=== PATIENT | female | born 1950 | race Caucasian/White ===

== ENCOUNTER 2017-08-09 14:02 | Inpatient (IN) | payer OTHER ==
--- NOTE | 2017-08-09 14:18 | EDPHY ---
General Time Seen by Provider: 08/09/17 14:07 Narrative: CHIEF COMPLAINT: M1 hold HISTORY OF PRESENT ILLNESS: Patient presents on M1 hold due to grave disability and reported suicidal ideation. The patient says she is bipolar and has not been taking her medications since June. She says she has tried to help her symptoms by swimming , thinking positively, eating better foods and this is not helping her. She says she stop taking medications because "I could not afford them and I did want to take." She denies suicidal ideation to me, but the M1 documents that she was reportedly suicidal at the crisis Center. She took sells to the crisis Center because she was not feeling well and felt that she needed help. No other associated complaints or modifying factors. PSYCHIATRIC DIAGNOSES: Bipolar disorder, PTSD, anxiety PRIOR PSYCHIATRIC EVALUATIONS: Multiple inpatient evaluations M1/DETAINER: Crisis Center just prior to arrival REVIEW OF SYSTEMS: Ten systems reviewed and are negative unless otherwise noted in the HPI EXAMINATION General Appearance: Alert, no distress. Well-developed well-nourished. Head: normocephalic, atraumatic Eyes: Pupils equal and round, no conjunctival pallor or injection ENT, Mouth: Mucous membranes moist Neck: Normal inspection, supple, non-tender Respiratory: Lungs are clear to auscultation Cardiovascular: Regular rate and rhythm. No murmur Gastrointestinal: Abdomen is soft and nontender Back: non-tender, no bony abnormalities Neurological: A&O, nonfocal, normal gait Skin: Warm and dry, no rash no petechiae or purpura Extremities: Nontender, no pedal edema Psychiatric: Depressed mood and emotionally labile with flight of ideas and manic behaviors. Denies SI DIFFERENTIAL DIAGNOSES: Including but not limited to manic episode, bipolar disorder, PTSD, anxiety, suicidal ideation, hypomania MDM: 1:50 p.m. M1 due to grave disability and suicidal ideation bipolar patient. She does appear to be manic and admits to not taking her medication. She denies SI to me. She is on an M1 hold from the crisis Center and we will proceed with clearance and evaluation 2:40 p.m. Patient medically cleared at this time for evaluation. 3:40 p.m. Patient currently be evaluated. 4:40 p.m. Patient has been evaluated and is waiting for placement as recommended by EPS. 5:[address] At this time Dr. Shen will assume care the patient. She is pending placement as recommended by EPS. She has been very calm and not requiring medication to this time. Please see his note for final disposition. SUPERVISION: Patient was independently examined, but I discussed the case with my secondary supervising physician Dr. Shen ([facility]) Medical Decision Making: PHYSICIAN DOCUMENTATION: The patient was evaluated and managed by the Physician Belt Tender and myself. I have reviewed the chart and agree with the findings and plan of care as documented. In addition, I examined the patient myself at 1700. History confirmed as multiple recent emotional trauma as including estrangement from her daughter, a separation from her mother, recent break-up with a boyfriend in May, difficulty finding a job, homeless and living in her car. Physical findings as follows: Patient feels like her thoughts are racing, she is tearful and anxious. On a mental health hold, plan for placement for admission for severe depression , suicidal ideation. Signed out to [facility] with inpatient placement pending. I am the secondary supervising physician. (Binh Shen) 11:37pm The patient has been accepted to [address] [place] [address] Mccloud. I have completed the EMTALA form. The patient will be transferred at 12:30 a.m. We anticipate. (Tosin Robertson) - Objective Vital Signs: Initial Vital Signs Temperature (C) 36.8 C 08/09/17 14:02 Heart Rate 79 08/09/17 14:02 Respiratory Rate 16 08/09/17 14:02 Blood Pressure 136/94 H 08/09/17 14:02 O2 Sat (%) 96 08/09/17 14:02 O2 Delivery Mode Room Air Allergies/Adverse Reactions: No Known Allergies Allergy (Verified 08/09/17 14:25) Home Medications: Medication Instructions Recorded NK [No Known Home Meds] 08/09/17 Laboratory Results: Laboratory Results 08/09/17 14:12 08/09/17 14:12 08/09/17 08/09/17 08/09/17 14:28 14:12 14:12 WBC 4.52 10^3/uL 10^3/uL (3.80-9.50) RBC 4.88 10^6/uL 10^6/uL (4.18-5.33) Hgb 14.7 g/dL g/dL (12.6-16.3) Hct 43.5 % % (38.0-47.0) MCV 89.1 fL fL (81.5-99.8) MCH 30.1 pg pg (27.9-34.1) MCHC 33.8 g/dL g/dL (32.4-36.7) RDW 13.5 % % (11.5-15.2) Plt Count 212 10^3/uL 10^3/uL (150-400) MPV 10.4 fL fL (8.7-11.7) Neut % (Auto) 59.4 % % (39.3-74.2) Lymph % (Auto) 34.5 % % (15.0-45.0) Custer % (Auto) 4.6 % % (4.5-13.0) Eos % (Auto) 0.7 % % (0.6-7.6) Baso % (Auto) 0.4 % % (0.3-1.7) Nucleat RBC Rel Count 0.0 % % (0.0-0.2) Absolute Neuts (auto) 2.68 10^3/uL 10^3/uL (1.70-6.50) Absolute Lymphs (auto) 1.56 10^3/uL 10^3/uL (1.00-3.00) Absolute Monos (auto) 0.21 10^3/uL L 10^3/uL (0.30-0.80) Absolute Eos (auto) 0.03 10^3/uL 10^3/uL (0.03-0.40) Absolute Basos (auto) 0.02 10^3/uL 10^3/uL (0.02-0.10) Absolute Nucleated RBC 0.00 10^3/uL 10^3/uL (0-0.01) Immature Gran % 0.4 % % (0.0-1.1) Immature Gran # 0.02 10^3/uL 10^3/uL (0.00-0.10) Sodium 137 mEq/L mEq/L (135-145) Potassium 3.7 mEq/L mEq/L (3.3-5.0) Chloride 106 mEq/L mEq/L (97-110) Carbon Dioxide 25 mEq/l mEq/l (22-31) Anion Gap 6 mEq/L L mEq/L (8-16) BUN 9 mg/dL mg/dL (7-23) Creatinine 0.9 mg/dL mg/dL (0.6-1.0) Estimated GFR > 60 Glucose 189 mg/dL H mg/dL (70-100) Calcium 9.2 mg/dL mg/dL (8.5-10.4) Salicylates < 1.0 mg/dL L mg/dL (2.0-20.0) Urine Opiates Screen NEGATIVE (NEGATIVE) Acetaminophen < 10 mcg/mL L mcg/mL (10-30) Urine Barbiturates NEGATIVE (NEGATIVE) Ur Phencyclidine Scrn NEGATIVE (NEGATIVE) Ur Amphetamine Screen NEGATIVE (NEGATIVE) U Benzodiazepines Scrn NEGATIVE (NEGATIVE) Urine Cocaine Screen NEGATIVE (NEGATIVE) U Marijuana (THC) Screen NEGATIVE (NEGATIVE) Ethyl Alcohol < 10 mg/dL mg/dL (0-10) Medications Given: Discontinued Medications Lorazepam (Ativan) 1 mg PO EDNOW ONE Stop: 08/09/17 17:18 Last Admin: 08/09/17 17:33 Dose: 1 mg Departure - Departure Disposition: [facility] IP Clinical Impression: Suicidal ideation Bipolar disorder Qualifiers: Active/Remission status: currently active Current bipolar episode type: manic Current episode severity: unspecified Qualified Code(s): F31.9 - Bipolar disorder, unspecified Condition: Fair Referrals: [facility],. [Clinic] - As per Instructions Vinicius Mcneil MD [Medical Doctor] - As per Instructions
[2017-08-09 14:33] LABS: PLATELET COUNT 212 10^3/uL (150-400)
[2017-08-09] MEDS ORDERED: LORazepam 1 MG TAB PO ONE (17:17)
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
--- NOTE | 2017-08-09 23:24 | ASMTTCLDSP ---
TLC Discharge Disposition Disposition: Answers: Admit Disposition Notes: Notes: Per consultation with ed nataliia Shen MD and On-call psychiatrist Dr.Susie Mccloud the pt does continue to meet 27-65 criteria and continues to be grave disabled due to a mental illness disorder. For inpatient Dr. Danay Mccloud admission, the following psychiatrist agreed to accept patient for admission to [facility] Type of Hold: Answers: M1/72-hour Hold Hold initiated by: Answers: Other Notes: [facility] patient access registrar at [facility] Date Signed: 08/09/2017 11:24 PM Electronically Signed By:Luc Brandon
[2017-08-10] MEDS ORDERED: MAG HYDROX/AL HYDROX/SIMETH 30 ML UDCUP PO PRN (01:42)
[2017-08-10] MEDS ORDERED: NICOTINE POLACRILEX 2 MG GUM B PRN (01:42)
[2017-08-10] MEDS ORDERED: MAGNESIUM HYDROXIDE 30 ML UDCUP PO PRN (01:42)
[2017-08-10] MEDS ORDERED: OLANZapine 5 MG TAB PO PRN (01:43)
[2017-08-10] MEDS: LORazepam 0.5 MG TAB PO PRN ×2 (02:17→19:16)
[2017-08-10] MEDS: ACETAMINOPHEN 325 MG TAB PO PRN (02:18)
--- NOTE | 2017-08-10 11:10 | GCON ---
[f rep st] CONSULTATION DATE OF CONSULTATION: 08/10/2017 HISTORY OF PRESENT ILLNESS: The patient is a pleasant 67-year-old female history of bipolar. She [place] s been off medications for a number of on weeks to months, secondary to poor access to medications. She presents to the ER feeling gravely disabled. She describes episodes of tera recently with poor sleep and drinking alcohol to try to quiet her feelings. With that said, she has not been bingeing o n alcohol. She denies exertional chest pain, dyspnea on exertion, lower extremity edema, cough, shortness of janine ath, fever, chills, unexplained weight loss, constipation. She said she had some diarrhea after drin lillian alcohol. REVIEW OF SYSTEMS: Complete 10-point review of systems conducted negative, except as noted in the HP I. PAST MEDICAL HISTORY: Bipolar. ALLERGIES: No known drug allergies. HOME MEDICATIONS: None. SOCIAL HISTORY: Occasional alcohol. No tobacco. Currently homeless, lives in [place]. FAMILY HISTORY: Reviewed and unremarkable. PHYSICAL EXAMINATION: VITAL SIGNS: Temp 36.8, blood pressure 136/94, pulse 79, breathing 16 times a minute, 96% on room air. GENERAL: In no acute distress. HEENT: Sclerae anicteric. Oropharynx cl ear. Mucous membranes moist. NECK: Supple without lymphadenopathy or JVD. LUNGS: Clear to auscul tation bilaterally. HEART: S1, S2. ABDOMEN: Soft, nontender, nondistended. LOWER EXTREMITIES: W ithout edema. Calves are nontender. SKIN: Without rash. NEUROLOGIC: Exam is nonfocal. LABORATORY/IMAGING: Sodium 137, potassium 3.7, chloride 106, bicarb 25, BUN 9, creatinine 0.9, gluco se 189. Hemoglobin A1c is pending. Tox screen is negative. White count 4.5, hematocrit 43, platele ts are 212,000. There is no imaging. I have discussed case with Dr. Danay Mccloud. ASSESSMENT/PLAN: 67-year-old female presents with untreated bipolar illness and possible tera. 1. Bipolar/tera. She has been started on Zyprexa. Further management as per Psychiatry. 2. Hyperglycemia. This is a 67-year-old female who is at risk for type 2 diabetes. I agre e with following up her hemoglobin A1c. If higher than 7, would recommend metformin 500 twice daily. 3. Prophylaxis. The patient should presumably be ambulatory. If she is sleeping for long periods o f time, she warrants venous thromboembolism prophylaxis. 4. Hypertension. The patient had mild to moderate hypertension on presentation, but she relates to me a lifelong history of normal blood pressures. Would not treat at this point in time. If she is p ersistently hypertensive, say above 150/80, would reach out to Hospital Medicine and/or Oneil hanna for recommendations on antihypertensives starting with an RHYS inhibitor. /[id number]/MODL
[2017-08-10] MEDS ORDERED: GABAPENTIN 100 MG CAP PO PRN (19:15)
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
--- NOTE | 2017-08-11 12:55 | ASMTCMCOM ---
CM Note CM Note Notes: Pt. refused to sign [employer] form Date Signed: 08/11/2017 12:54 PM Electronically Signed By:Taryn Valentin
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
[2017-08-11] MEDS: GABAPENTIN 100 MG CAP PO SCH (22:01)
[2017-08-11] MEDS: LORazepam 0.5 MG TAB PO PRN (22:05)
[2017-08-12] MEDS: GABAPENTIN 100 MG CAP PO SCH ×3 (09:31→21:19)
[2017-08-12] MEDS: ARIPiprazole 5 MG TAB PO SCH (09:31)
--- NOTE | 2017-08-12 15:20 | SOAPPROG ---
SOAP Progress Note Assessment/Plan: Assessment: 67 yo woman presented to ED d/t depression and SI w/o plan. Plan: 08/12/17 15:13 1. Restarted Abilify 5mg PO QAM, which patient is tolerating w/o SE's. 2. Patient also consented to Gabapentin 100mg TID for anxiety. 3. Patient isolating in room all day, despite encouragement to attend groups and participate in milieu activities. 4. Willing to sign in voluntarily. 5. Patient wants assistance to enroll for Medicare so she can access services when she leaves. Subjective: Met with patient, reviewed chart and d/w staff. Patient states she is still feeling helpless, hopeless. She wants to know "how I can crawl out of this deep hole." She blames herself for making "bad decisions" and "always doing the wrong thing." Patient says she "can't afford" to pay for Medicare insurance or for medications. MD reassured her that CC would talk to her about her financial options. MD tried to impress on patient that she might be better off using some of her She denies any SI/HI. Objective: Vital Signs Temp Pulse Resp BP Pulse Ox 36.3 C 81 16 143/70 H 94 08/12/17 06:48 08/12/17 13:00 08/12/17 13:00 08/12/17 13:00 08/12/17 13:00 MSE: Affect: Crying Mood: Hopeless TC: Linear, goal-directed TC: Denies SI /HI,no AH/VH Insight/Judgment: Poor - Time Spent With Patient Time Spent With Patient: 15" - Pending Discharge Pending Discharge Within 24 Hours: No Pending Discharge Within 48 Hours: No ICD10 Worksheet Patient Problems: Problems Problem Status Onset Bipolar disorder Acute Suicidal ideation Acute
[2017-08-12] MEDS: LORazepam 0.5 MG TAB PO PRN (21:19)
[2017-08-13] MEDS: ARIPiprazole 5 MG TAB PO SCH (08:16)
[2017-08-13] MEDS: GABAPENTIN 100 MG CAP PO SCH (08:16)
[2017-08-13] MEDS: ACETAMINOPHEN 325 MG TAB PO PRN (14:45)
[2017-08-13] MEDS: GABAPENTIN 300 MG CAP PO SCH ×2 (16:21→21:07)
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
[2017-08-13] MEDS: MIRTAZAPINE 15 MG TAB PO SCH (21:07)
[2017-08-13] MEDS: LORazepam 0.5 MG TAB PO PRN (21:10)
[2017-08-14] MEDS: ARIPiprazole 5 MG TAB PO SCH (08:51)
[2017-08-14] MEDS: GABAPENTIN 300 MG CAP PO SCH ×3 (08:51→20:24)
--- NOTE | 2017-08-14 14:14 | SOAPPROG ---
SOAP Progress Note Assessment/Plan: Assessment: Plan: 08/13/17 18:58 Depression: Dx'd with Bipolar D/o. Some historical evidence of this. Main c/ o at this time is pervasive anxiety. She believes the Abilify is helpful to her. Dr. Mccloud mentioned Latuda, but I believe it is more prudent to continue Abilify. She is agreeable to increasing gabapentin to 300mg TID to address anxiety and to start mirtazapine for sleep and mood. The risks, benefits and alternatives of all three medications are reviewed with her. I emphasized risk of tera with mirtazapine and standard risks of Abilify. 08/14/17 14:14 Depression: Improving. Sleep better with mirtazapine. CCM. Continue d/c planning. Subjective: Pt seen, discussed with staff. Seen in treatment planning meeting to identify specific goals for d/c. Goes back into feelings of despair and "uselessness." Verbose, but able to identify housing, meds, and follow-up as primary goals. Objective: Vital Signs Temp Pulse Resp BP Pulse Ox 36.3 C 84 14 117/80 95 08/14/17 10:21 08/14/17 10:21 08/14/17 10:21 08/14/17 10:21 08/14/17 10:21 MSE: Calm, coop. Affect is varied, tearful at times, smiling at others; blunted, stable. Mood is "hopeless." TP linear. TC reveals no psychosis. SI present, but passive. - Time Spent With Patient Time Spent With Patient: 25" ICD10 Worksheet Patient Problems: Problems Problem Status Onset Bipolar disorder Acute Suicidal ideation Acute
[2017-08-14] MEDS: MIRTAZAPINE 15 MG TAB PO SCH (20:25)
[2017-08-14] MEDS: LORazepam 0.5 MG TAB PO PRN (20:52)
[2017-08-15] MEDS: ARIPiprazole 5 MG TAB PO SCH (08:05)
[2017-08-15] MEDS: GABAPENTIN 300 MG CAP PO SCH ×3 (08:05→20:52)
--- NOTE | 2017-08-15 13:33 | ASMTCMCOM ---
CM Note CM Note Notes: Pt. reports feeling "extremely anxious", adding she "didn't want to get out of bed". Pt. reports her anxiety feeling like "you're running a race". Pt. reported waking up a lot last night due to "lots of odd dreams". Pt. reports no issues with her medications, other than she continues to feel anxious. Pt. stated she is "still scared" about being homeless, jobless, and about her future. Pt. stated "my life is hopeless still". Pt. denied SI, HI, AVH and paranoia. Pt. reports feeling disappointed when she wakes up and is still alive. Pt. presents as alert, anxious, groomed, with a mostly pleasant demeanor and with good eye contact. Staff report pt. sleeping 11 hours and being medication compliant. Date Signed: 08/15/2017 01:32 PM Electronically Signed By:Taryn Valentin
--- NOTE | 2017-08-15 16:40 | SOAPPROG ---
SOAP Progress Note Assessment/Plan: Assessment: Plan: 08/13/17 18:58 Depression: Dx'd with Bipolar D/o. Some historical evidence of this. Main c/ o at this time is pervasive anxiety. She believes the Abilify is helpful to her. Dr. Mccloud mentioned Latuda, but I believe it is more prudent to continue Abilify. She is agreeable to increasing gabapentin to 300mg TID to address anxiety and to start mirtazapine for sleep and mood. The risks, benefits and alternatives of all three medications are reviewed with her. I emphasized risk of tera with mirtazapine and standard risks of Abilify. 08/14/17 14:14 Depression: Improving. Sleep better with mirtazapine. CCM. Continue d/c planning. 08/15/17 16:40 Depression: Continued gradual improvement. Will CCM, continue to focus on practical planning issues. Subjective: Pt seen, discussed with staff. States she slept well though had vivid dreams. Napping when I enter the room. She remains rather histrionic, going back into stories of personal "failures" and unfulfilled life. Discussed again the "action plan" of getting into the intermediate and finding basic employment to get her feet on the ground. Objective: Vital Signs Temp Pulse Resp BP Pulse Ox 36.3 C 73 14 138/71 H 98 08/15/17 08:12 08/15/17 08:12 08/15/17 08:12 08/15/17 08:12 08/15/17 08:12 MSE: Calm, coop. Affect is blunted at first, then tearful off and on. Mood is "sad." TP is linear. TC reveals no psychosis. SI persists. - Time Spent With Patient Time Spent With Patient: 25" ICD10 Worksheet Patient Problems: Problems Problem Status Onset Bipolar disorder Acute Suicidal ideation Acute
[2017-08-15] MEDS: MIRTAZAPINE 15 MG TAB PO SCH (20:52)
[2017-08-15] MEDS: LORazepam 0.5 MG TAB PO PRN (20:52)
[2017-08-16] MEDS: GABAPENTIN 300 MG CAP PO SCH ×3 (09:56→19:30)
[2017-08-16] MEDS: ARIPiprazole 5 MG TAB PO SCH (09:56)
[2017-08-16] MEDS: LORazepam 0.5 MG TAB PO PRN ×2 (14:18→19:30)
--- NOTE | 2017-08-16 14:31 | SOAPPROG ---
SOAP Progress Note Assessment/Plan: Assessment: Per Dr. Messina's note: 08/13/17 18:58 Depression: Dx'd with Bipolar D/o. Some historical evidence of this. Main c/ o at this time is pervasive anxiety. She believes the Abilify is helpful to her. Dr. Mccloud mentioned Latuda, but I believe it is more prudent to continue Abilify. She is agreeable to increasing gabapentin to 300mg TID to address anxiety and to start mirtazapine for sleep and mood. The risks, benefits and alternatives of all three medications are reviewed with her. I emphasized risk of tera with mirtazapine and standard risks of Abilify. 08/14/17 14:14 Depression: Improving. Sleep better with mirtazapine. CCM. Continue d/c planning. 08/15/17 16:40 Depression: Continued gradual improvement. Will CCM, continue to focus on practical planning issues. Subjective: Pt seen, discussed with staff. States she slept well though had vivid dreams. Napping when I enter the room. She remains rather histrionic, going back into stories of personal "failures" and unfulfilled life. Discussed again the "action plan" of getting into the halfway and finding basic employment to get her feet on the ground. 08/16/17 14:27 1. Patient presents with brighter affect, smiling, sitting in chair watching TV. 2. Patient still reports feeling "depressed" about her life, though her affect is not mood congruent. She is eating well and slept 10 hrs last night. 3. Patient denies any SE's from abilify, gabapentin and mirtazapine. 4. MD and staff encourage patient to focus on incremental steps to renew a sense of purpose and stability in her life, ie get into halfway, find employment and connect with outpatient mental health providers. She has agreed to this plan. 5. Voluntary Subjective: Met with patient, reviewed chart and d/w staff. Patient is sitting in chair, smiling, laughing and watching TV. She ate 100% of breakfast and slept 10 hrs last night. Patient is sleeping better with Remeron, no evidence of tera or hypomania. She denies any thoughts, plans or intent to hurt herself in hospital. Objective: Vital Signs Temp Pulse Resp BP Pulse Ox 36.8 C 80 16 96/58 L 93 08/16/17 00:30 08/16/17 00:30 08/16/17 00:30 08/16/17 00:30 08/16/17 00:30 MSE: Affect: Smiling Mood: "OK TP: Linear, goal-directed TC: Denies any SI/HI , no AH/VH Insight/Judgment: Poor - Time Spent With Patient Time Spent With Patient: 15" - Pending Discharge Pending Discharge Within 24 Hours: No Pending Discharge Within 48 Hours: No ICD10 Worksheet Patient Problems: Problems Problem Status Onset Bipolar disorder Acute Suicidal ideation Acute
--- NOTE | 2017-08-16 15:01 | ASMTCMCOM ---
CM Note CM Note Notes: Pt. reported "absolute struggle to get out of bed". Pt. stated in the past she had kept two beers near her bed to "chug" in the morning, and would feel "peaceful for about an hour". Pt. stated "if I don't take Ativan, I can't sleep". Pt. stated she woke up at 6am this morning and needed to use the bathroom, but did not get out of bed until 10am because she felt "absolute pain, like bricks all over my body". Pt. stated medications are "just a quick fix". Pt. stated the most important part of her day used to be getting out of bed and starting her day. Pt. stated her goal for today was to make her bed, which she did. Pt. denied HI, AVH and paranoia. Pt. stated she is not suicidal in the hospital due to "because can't do anything in here". Pt. presents as sad, polite, groomed, with a mostly pleasant demeanor, and with good eye contact. Staff report pt. sleeping 10 hours and being medication complaint. Date Signed: 08/16/2017 03:00 PM Electronically Signed By:Taryn Valentin
[2017-08-16] MEDS: MIRTAZAPINE 15 MG TAB PO SCH (19:30)
[2017-08-17] MEDS: GABAPENTIN 300 MG CAP PO SCH ×3 (08:23→20:39)
[2017-08-17] MEDS: ARIPiprazole 5 MG TAB PO SCH (08:23)
--- NOTE | 2017-08-17 15:56 | ASMTCMCOM ---
CM Note CM Note Notes: Pt. was sitting with her head in her hands in the milieu when CC approached. Pt. reported feeling "realyl dizzy". Pt. stated she had been dizzy all morning. Pt. stated there were "a lot of interruptions last night and I didn't sleep well." Pt. stated she wanted to go lie down for a little while and CC walked her to her room. Staff report pt. sleeping at least 11.5 hours, attending goals group, and being medication compliant. Date Signed: 08/17/2017 03:55 PM Electronically Signed By:Taryn Valentin
[2017-08-17] MEDS: ACETAMINOPHEN 325 MG TAB PO PRN (16:34)
--- NOTE | 2017-08-17 16:48 | SOAPPROG ---
SOAP Progress Note Assessment/Plan: Assessment: Per Dr. Messina's note: 08/13/17 18:58 Depression: Dx'd with Bipolar D/o. Some historical evidence of this. Main c/ o at this time is pervasive anxiety. She believes the Abilify is helpful to her. Dr. Mccloud mentioned Latuda, but I believe it is more prudent to continue Abilify. She is agreeable to increasing gabapentin to 300mg TID to address anxiety and to start mirtazapine for sleep and mood. The risks, benefits and alternatives of all three medications are reviewed with her. I emphasized risk of tera with mirtazapine and standard risks of Abilify. 08/14/17 14:14 Depression: Improving. Sleep better with mirtazapine. CCM. Continue d/c planning. 08/15/17 16:40 Depression: Continued gradual improvement. Will CCM, continue to focus on practical planning issues. Subjective: Pt seen, discussed with staff. States she slept well though had vivid dreams. Napping when I enter the room. She remains rather histrionic, going back into stories of personal "failures" and unfulfilled life. Discussed again the "action plan" of getting into the nursing home and finding basic employment to get her feet on the ground. 08/16/17 14:27 1. Patient presents with brighter affect, smiling, sitting in chair watching TV. 2. Patient still reports feeling "depressed" about her life, though her affect is not mood congruent. She is eating well and slept 10 hrs last night. 3. Patient denies any SE's from abilify, gabapentin and mirtazapine. 4. MD and staff encourage patient to focus on incremental steps to renew a sense of purpose and stability in her life, ie get into nursing home, find employment and connect with outpatient mental health providers. She has agreed to this plan. 5. Voluntary 08/17/17 16:44 1. Slept 11. 5 hrs, ate 50% of breakfast. 2. Brighter affect, denied SI this AM, but reports it was "too early to tell." 3. Able to contract for safety on unit. 4. Voluntary Subjective: Met with patient, reviewed chart and d/w staff. Patient seems to have brighter affect today, smiling at times. She denied any SI this AM and contracted for safety. She told RN "I'm not going to do anything (to harm herself) while I'm here." She has been attending more groups and is present in milieu more often. Objective: Vital Signs Temp Pulse Resp BP Pulse Ox 36.5 C 68 14 120/64 95 08/17/17 06:46 08/17/17 06:46 08/17/17 06:46 08/17/17 06:46 08/17/17 06:46 MSE: Affect: Brighter Mood: Still reports feeling "depressed" TP: Linear TC: Denies any SI/HI, no AH/VH Insight/Judgment: Poor - Time Spent With Patient Time Spent With Patient: 15" - Pending Discharge Pending Discharge Within 24 Hours: No Pending Discharge Within 48 Hours: No ICD10 Worksheet Patient Problems: Problems Problem Status Onset Bipolar disorder Acute Suicidal ideation Acute
[2017-08-17] MEDS: MIRTAZAPINE 15 MG TAB PO SCH (20:39)
[2017-08-17] MEDS: LORazepam 0.5 MG TAB PO PRN (20:49)
[2017-08-18] MEDS ORDERED: LORazepam 0.5 MG TAB PO SCH ×2
[2017-08-18] MEDS ORDERED: GABAPENTIN 300 MG CAP PO SCH ×2
[2017-08-18] MEDS ORDERED: MIRTAZAPINE 15 MG TAB PO SCH
[2017-08-18] MEDS ORDERED: MIRTAZAPINE 15 MG ODTAB PO SCH
[2017-08-18] MEDS ORDERED: ARIPiprazole 5 MG TAB PO SCH ×2
[2017-08-18 06:51] VITALS: BP 106/60
[2017-08-18] MEDS: GABAPENTIN 300 MG CAP PO SCH (08:36)
[2017-08-18] MEDS: ARIPiprazole 5 MG TAB PO SCH (08:36)
--- NOTE | 2017-08-18 13:27 | ASMTBHDC ---
Notes Note: Notes: Pt. reports feeling "okay". Pt. stated she would like to discharge today, as she has two job interviews tomorrow. Pt. requested to stay at the [facility]; CC coordinated entry for pt. Pt. requested help paying for her medications after discharge. Pt. requested to be placed on a low-income housing list; [facility] referral given. Pt. denied SI, HI, AVH and paranoia. Staff report pt. sleeping 7.5 hours and being medication compliant. Date Signed: 08/18/2017 01:26 PM Electronically Signed By:Taryn Valentin
--- NOTE | 2017-08-18 15:20 | BDS ---
[f rep st] BEHAVIORAL HEALTH DISCHARGE SUMMARY REASON FOR ADMISSION: Patient is a 67-year-old female who was admitted from the emergency department after she presented reporting suicidal ideation. She had been living in her car and had felt lonely and despondent since leaving her boyfriend several months earlier in [place]. 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 She stated that she did not have enough money to buy her medications and [place] d not established care with a provider in the area. She had begun having more pressing thoughts of s uicide and had spoken with her outpatient psychotherapist, Dr. Sidney Roe, at [facility], who recommended that she come to the hospital for evaluation. A full description of the ev ents preceding admission can be found in Dr. Jones's admission history dated 08/11/2017. ADMITTING DIAGNOSES: Bipolar disorder, most recent episode depressed; alcohol use disorder, severity unknown; rule out posttraumatic stress disorder; lack of social supports; homelessness; unemployment ; financial difficulties; noncompliant with treatment; difficulty with access to mental health servic es. PHYSICAL EXAMINATION: Admitting physical examination performed by Dr. Lorne Mendoza revealed no acu te physical findings. ADMISSION LABORATORY DATA: CBC was normal. Serum chemistries showed a nonfasting glucose up at 189. Hemoglobin A1c was elevated at 6.7. Liver function was normal. TSH was normal at 1.94. Vitamin B 12 was normal. Urine drug screen was negative for all substances. Alcohol is less than detectable. HOSPITAL COURSE: The patient was admitted to the behavior health services inpatient unit on an M1 ho ld. She was pleasant and cooperative, and Dr. Jones was able to assess her, determining that she appe ared to have a bipolar depression and had previously done well on Abilify. Abilify was restarted at 5 mg daily, in combination with gabapentin 100 mg t.i.d. for her anxiety and also to possibly amelior ate some of her potential alcohol withdrawal symptoms. It is of note that she never did evidence any significant alcohol withdrawal. She noted, however, that the gabapentin was calming, and we titrate d it ultimately to 300 mg t.i.d. with good effect and no side effects. I assumed the patient's care on 08/13/2017, and noted her to be engaging, though somewhat stuck in he r narrative of ongoing disappointment in life and despair. She would repeat at every encounter that she was "67 years old and useless to the world." She stated that no one loved her and that she had n o supports and she had no reason to go on. I worked with her on a daily basis to reframe this and fo cus on tangible goals for the future, such as housing, employment, and establishing her outpatient ca re. We were ultimately able to do this. We saw her in treatment planning meeting on August 15, in order to set the stage for active discharge planning. She was able to change her focus slightly, check her messages on her cell phone, and realized that she had several job offers, or at least inte rviews, since she had been in the hospital, and she was encouraged by this. On August 18, I met with her, and she stated that she needed to get out of the hospital so she could go establish hers f with a local long-term and attend these job interviews. 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 Patient's hospitalization was uncomplicated. I did add mirtazapine 15 mg at h.s. for sleep, which th e patient found to be helpful. CONDITION ON DISCHARGE: Stable. Her affect was euthymic, stable and appropriate. She was sleeping and eating well and was voicing no further thoughts of suicide. DISCHARGE MEDICATIONS: Gabapentin 300 mg t.i.d., Abilify 5 mg daily, and mirtazapine 15 mg q.h.s. DISCHARGE DIAGNOSES: Bipolar 1 disorder, most recent episode depressed, severe, without psychosis, h omelessness, lack of supports, financial difficulties, unemployment. DISPOSITION: Patient left the hospital of her own accord to retrieve her car from the walk-in clinic and then go to the long-term for the court-dated entry program. FOLLOWUP: Followup is with [facility] as scheduled by the career development director. She has the therapist, and they are attempting to find her a prescriber as well. The patient is given alfredo alvarenga instructions, including times and dates of appointments at the time of discharge. The patient was converted to a voluntary status at the expiration of her M1 hold. The patient's attitude was positive and forward thinking at the time of discharge. The patient did not have advance directives on file, but she was a full code throughout her admission . There were no pending labs or studies at the time of discharge. /[id number]/[id number]
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
== END 2017-08-18 15:15 | disposition home or self-care (01) | DRG 885 ==
LOC: BBEH 08-10 01:15
PROVIDERS: ADMIT Psychiatry & Neurology Behavioral Neurology & Neuropsychiatry; ATTEND Psychiatry & Neurology Behavioral Neurology & Neuropsychiatry
DX: F31.30 Bipolar disorder, current episode depressed, mild or moderate severity, unspecified (principal); F43.10 Post-traumatic stress disorder, unspecified; F41.9 Anxiety disorder, unspecified; Z59.0 Homelessness; Z91.120 Patient's intentional underdosing of medication regimen due to financial hardship; R73.9 Hyperglycemia, unspecified; R03.0 Elevated blood-pressure reading, without diagnosis of hypertension
CPT/HCPCS: 80305; 82607-90; G0480